=== PATIENT | male | born 1970 | race Two or more races ===

== ENCOUNTER 2018-10-21 02:26 | Emergency (ER) | payer OTHER ==
[~2018-10-21] VITALS: Ht 177.8 cm; Wt 105.5 kg
[2018-10-21 02:35] VITALS: BP 141/65
[2018-10-21] MEDS ORDERED: ASPI-630 PO (03:10)
[2018-10-21] MEDS ORDERED: metoprolol (03:10)
[2018-10-21] MEDS ORDERED: furosemide (03:11)
[2018-10-21] MEDS ORDERED: ALBU2.5V8 INH (03:15)
[2018-10-21] MEDS ORDERED: METH4TAB2 PO (03:15)
[2018-10-21] MEDS ORDERED: predniSONE 20 MG TABLET PO ONE (03:15)
[2018-10-21] MEDS ORDERED: AZIT250T6 PO (03:15)
--- NOTE | 2018-10-21 03:15 | PHYS DOC ---
Adult General Chief Complaint Chief Complaint: COUGH HPI HPI Patient is a 48 year old male who presents with complaint of cough and chest congestion. States symptoms started one week ago with sinus pressure and postnasal drip. States his symptoms have progressively worsened since onset. Has had greenish sputum with coughing. Notes that he has had worsening difficulty breathing with exertion. Denies any extremity swelling or fever. Has been taking Mucinex and Claritin with no significant improvement in symptoms. States that he has burning in his chest with breathing and coughing. Notes that he has sore throat from his drainage. Review of Systems Review of Systems Constitutional: Denies fever or chills [] Eyes: Denies change in visual acuity, redness, or eye pain [] HENT: Nasal congestion, postnasal drip, sore throat[] Respiratory: Cough[] Cardiovascular: Denies substernal chest pain or edema[] GI: Denies abdominal pain, nausea, vomiting, bloody stools or diarrhea [] : Denies dysuria or hematuria [] Musculoskeletal: Denies back pain or joint pain [] Integument: Denies rash or skin lesions [] Neurologic: Denies headache, focal weakness or sensory changes [] All other systems were reviewed and found to be within normal limits, except as documented in this note. Allergies Allergies Allergies Uncoded Allergies Type Severity Reaction Last Updated Verified antibiotic-starts with S Allergy Unknown 10/21/18 Physical Exam Physical Exam Constitutional: Alert, afebrile, vital signs stable, no acute distress. [] HENT: Normocephalic, atraumatic, bilateral external ears normal, oropharynx erythematous, posterior pharyngeal cobblestoning consistent with postnasal drip present, thick rhinorrhea. [] Eyes: PERRLA, EOMI, conjunctiva normal, no discharge. [] Neck: Normal range of motion, no tenderness, supple, no stridor. [] Cardiovascular:Heart rate regular rhythm, no murmur [] Lungs & Thorax: Occasional rhonchi, no wheezes or rales, mildly restricted air movement bilaterally[] Abdomen: Bowel sounds normal, soft, no tenderness, no masses, no pulsatile masses. [] Skin: Warm, dry, no erythema, no rash. [] Back: No tenderness, no CVA tenderness. [] Extremities: No tenderness, no cyanosis, no clubbing, ROM intact, no edema. [] Neurologic: Alert and oriented X 3, normal motor function, normal sensory function, no focal deficits noted. [] Current Patient Data Vital Signs Temperature 98.6, heart rate 70, blood pressure 141/65, pulse oximetry 96% on room air Lab Results Not performed EKG EKG Not performed[] Radiology/Procedures Radiology/Procedures Not performed[] Course & Med Decision Making Course & Med Decision Making Pertinent Labs and Imaging studies reviewed. (See chart for details) Patient's symptoms appear consistent with bronchitis. Given prednisone in the emergency department. Prescribed azithromycin, Medrol, and albuterol for outpatient treatment. Advised follow-up in one week with primary doctor for reevaluation and return to the emergency department for any worsening symptoms. Patient was understanding and in agreement with treatment plan.[] Dragon Disclaimer Dragon Disclaimer This electronic medical record was generated, in whole or in part, using a voice recognition dictation system. Departure Departure: Impression: Primary Impression: Bronchitis Disposition: HOME, SELF-CARE Condition: STABLE Referrals: PCP,SÁNCHEZ (PCP) Patient Instructions: Acute Bronchitis Additional Instructions: Follow-up with your primary doctor in 1 week if symptoms are not improving. Return to the emergency department for any worsening symptoms. Scripts Albuterol Sulfate (PROAIR HFA INHALER) 8.5 Gm Hfa.aer.ad 2 PUFF INH Q4-6HRS PRN for SHORTNESS OF BREATH, #1 INHALER 0 Refills Prov: MARYLOU MICHELLE MD 10/21/18 Methylprednisolone (MEDROL) 4 Mg Tab.ds.pk 1 PKG PO UD, #1 PKG Prov: MARYLOU MICHELLE MD 10/21/18 Azithromycin (AZITHROMYCIN TABLET) 250 Mg Tablet 1 PKG PO UD, #6 TAB Prov: MARYLOU MICHELLE MD 10/21/18 MARYLOU MICHELLE MD October 21, 2018 03:15
[2018-10-21] MEDS ORDERED: ALBUTEROL SULFATE 8GM INHALER. ONE (03:21)
[2018-10-21] MEDS ORDERED: ALBUTEROL SULFATE 8GM INHALER. INH ONE (03:30)
== END 2018-10-21 03:24 | disposition home or self-care (01) ==
LOC: ER 02:38
DX: J40 Bronchitis, not specified as acute or chronic (principal); Z88.1 Allergy status to other antibiotic agents
CPT/HCPCS: 94640; 99283; J7512; 94664

== ENCOUNTER → 2019-02-03 | Outpatient (CLI) | payer OTHER ==
[~2019-02-03] MED LIST: ALBU2.5V8 INH; ASPI-630 PO; AZIT250T6 PO; METH4TAB2 PO; furosemide; metoprolol
--- NOTE | 2019-02-03 16:48 | RAD ---
Chest radiograph 02/03/2019 12:00 PM INDICATION: Edema of the lower legs COMPARISON: None available TECHNIQUE: Frontal and lateral views of the chest are provided. FINDINGS: The cardiomediastinal silhouette is within normal limits. There are no pleural effusions. There is no pulmonary vascular congestion. There is no pneumothorax. The lungs are clear. No significant osseous abnormality is identified. IMPRESSION: No acute cardiopulmonary process. Electronically signed by: Jeannette Fitch MD (02/03/2019 4:45 PM) [id number]
== END | disposition home or self-care (01) ==
LOC: PMG 11:54
PROVIDERS: ATTEND Registered Nurse
DX: I49.8 Other specified cardiac arrhythmias (principal); R60.0 Localized edema
CPT/HCPCS: 71046

== ENCOUNTER 2019-02-20 20:59 | Emergency (ER) | payer OTHER ==
[~2019-02-20] VITALS: Ht 177.8 cm; Wt 105.5 kg
[2019-02-20] MEDS ORDERED: ASPIRIN 81 MG TAB.CHEW PO ONE (21:30)
[2019-02-20] MEDS ORDERED: IV RINGERS SOLUTION,LACTATED 1,000 ML IV SCH (21:30)
[2019-02-20] MEDS ORDERED: ADENOSINE 6 MG/2 ML VIAL IV ONE ×2 (21:30)
[2019-02-20 21:58] LABS: BASO # 0.2 x10^3/uL (0.0-0.2); BASO % 2 % (0-3); EOS # 0.3 x10^3/uL (0.0-0.7); EOS % 3 % (0-3); HEMATOCRIT 46.4 % (39.0-53.0); LYMPH # 3.4 x10^3/uL (1.0-4.8); LYMPH % 34 % (24-48); MEAN CORPUSCULAR HEMOGLOBIN 32 pg (25-35); MEAN CORPUSCULAR HGB CONC 35 g/dL (31-37); MEAN CORPUSCULAR VOLUME 92 fL (79-100); MONO # 0.8 x10^3/uL (0.0-1.1); MONO % 8 % (0-9); NEUT # 5.5 x10^3uL (1.8-7.7); NEUT % 54 % (31-73); PLATELET COUNT 295 x10^3/uL (140-400); RED BLOOD COUNT 5.07 x10^6/uL (4.30-5.70); RED CELL DISTRIBUTION WIDTH 13.8 % (11.5-14.5); WHITE BLOOD COUNT 10.1 x10^3/uL (4.0-11.0)
[2019-02-20 22:15] LABS: ALBUMIN 4.1 g/dL (3.4-5.0); CALCIUM 9.6 mg/dL (8.5-10.1); CREATININE 1.5 mg/dL (0.7-1.3); DIRECT BILIRUBIN 0.1 mg/dL (0.0-0.2); GFR 49.9; MAGNESIUM 2.3 mg/dL (1.8-2.4); POTASSIUM 4.1 mmol/L (3.5-5.1); TOTAL BILIRUBIN 0.3 mg/dL (0.2-1.0); TOTAL PROTEIN 7.9 g/dL (6.4-8.2)
[2019-02-20 22:27] LABS: BARBITURATES NEG (NEG); BENZODIAZEPINES NEG (NEG); CANNABINOIDS NEG (NEG); COCAINE NEG (NEG); METHADONE NEG (NEG); OPIATES NEG (NEG); PHENCYCLIDINE NEG (NEG)
[2019-02-20 22:28] LABS: AMPHETAMINE/METHAMPHETAMINE NEG (NEG)
[2019-02-20 22:33] LABS: BACTERIA,URINE 0 /HPF (0-FEW); BILIRUBIN,URINE NEG (NEG); CLARITY,URINE CLEAR; COLOR,URINE STRAW; GLUCOSE,URINE NEG (NEG); NITRITE,URINE NEG (NEG); RBC,URINE OCC /HPF (0-2); SQUAMOUS EPITHELIAL CELL,UR OCC /LPF; UROBILINOGEN,URINE 2 mg/dL (0.2 mg/dL); WBC,URINE OCC /HPF (0-4)
[2019-02-20 23:53] VITALS: BP 137/85
[2019-02-21] MEDS ORDERED: METOPROLOL TART IMMED RELEASE 25 MG TABLET PO ONE
[2019-02-21] MEDS ORDERED: METO50TA6 PO (00:18)
--- NOTE | 2019-02-21 07:05 | ED.ADGEN ---
Past History Past Medical History: Hypertension, Sinusitis, Other Additional Past Medical Histor: SVT Past Surgical History: No Surgical History Alcohol Use: None Drug Use: None Adult General Chief Complaint Chief Complaint ".. I got a really fast heart rate.. I ve had this before.. but did not seem this bad.. I can usually make it stop by holding my breath .. or lifting something.. .:". 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 She gives a history of paroxysmal supraventricular tachycardia that has been episodic over the last 2 years. Patient has been compliant with taking his metoprolol 25 mg a day. History of specific ill contacts or travel. Patient denies any history immunosuppression. Patient has never been admitted for his supraventricular tachycardia.. Patient denies any increased intake of caffeine or use illicit drugs. Review of Systems Review of Systems Constitutional: Denies fever or chills [] Eyes: Denies change in visual acuity, redness, or eye pain [] HENT: Denies nasal congestion or sore throat [] Respiratory: Complains of shortness of breath [] Cardiovascular: No additional information not addressed in HPI [] GI: Denies abdominal pain, nausea, vomiting, bloody stools or diarrhea [] : Denies dysuria or hematuria [] Musculoskeletal: Denies back pain or joint pain [] Integument: Denies rash or skin lesions [] Neurologic: Denies headache, focal weakness or sensory changes [] Endocrine: Denies polyuria or polydipsia [] All other systems were reviewed and found to be within normal limits, except as documented in this note. Family History Family History Noncontributory Current Medications Current Medications Current Medications Medications (Trade) Dose Ordered Sig/Shantelle Start Time Stop Time Status Last Admin Dose Admin Adenosine (Adenocard) 12 mg 1X ONCE 02/20/19 21:30 02/20/19 21:31 DC Aspirin (Children'S Aspirin) 324 mg 1X ONCE 02/20/19 21:30 02/20/19 21:31 DC 02/20/19 21:50 324 MG Lactated Ringer's 1,000 ml @ 1,000 mls/hr Q1H 02/20/19 21:30 02/20/19 22:29 DC 02/20/19 21:28 1,000 MLS/HR Metoprolol Tartrate (Lopressor) 50 mg 1X ONCE 02/21/19 00:00 02/21/19 00:01 DC 02/20/19 23:53 50 MG Allergies Allergies Allergies Coded Allergies Type Severity Reaction Last Updated Verified Sulfa (Sulfonamide Antibiotics) Allergy Unknown 02/20/19 Yes Physical Exam Physical Exam Constitutional: Moderate acute distress, non-toxic appearance. [] HENT: Normocephalic, atraumatic, bilateral external ears normal, oropharynx moist, no oral exudates, nose normal. [] Eyes: PERRLA, EOMI, conjunctiva normal, no discharge. [] Neck: Normal range of motion, no tenderness, supple, no stridor. [] Cardiovascular: Tachycardia Heart rate regular rhythm, no murmur [] Lungs & Thorax: Bilateral breath sounds equal at apex on auscultation [] Abdomen: Bowel sounds normal, soft, no tenderness, no masses, no pulsatile masses. [] Skin: Warm, dry, no erythema, no rash. [Tattoos Back: No tenderness, no CVA tenderness. [] Extremities: No tenderness, no cyanosis, no clubbing, ROM intact, no edema. [] Neurologic: Alert and oriented X 3, normal motor function, normal sensory function, no focal deficits noted. [] Psychologic: Affect anxious, judgement normal, mood normal. [] Current Patient Data Vital Signs Vital Signs Date Time Temp Pulse Resp B/P (MAP) Pulse Ox O2 Delivery O2 Flow Rate FiO2 02/20/19 23:53 79 137/85 02/20/19 23:03 20 95 Room Air 02/20/19 21:10 97.9 Lab Results Laboratory Tests Test 02/20/19 21:10 02/20/19 21:54 White Blood Count 10.1 x10^3/uL (4.0-11.0) Red Blood Count 5.07 x10^6/uL (4.30-5.70) Hemoglobin 16.0 g/dL (13.0-17.5) Hematocrit 46.4 % (39.0-53.0) Mean Corpuscular Volume 92 fL (79-100) Mean Corpuscular Hemoglobin 32 pg (25-35) Mean Corpuscular Hemoglobin Concent 35 g/dL (31-37) Red Cell Distribution Width 13.8 % (11.5-14.5) Platelet Count 295 x10^3/uL (140-400) Neutrophils (%) (Auto) 54 % (31-73) Lymphocytes (%) (Auto) 34 % (24-48) Monocytes (%) (Auto) 8 % (0-9) Eosinophils (%) (Auto) 3 % (0-3) Basophils (%) (Auto) 2 % (0-3) Neutrophils # (Auto) 5.5 x10^3uL (1.8-7.7) Lymphocytes # (Auto) 3.4 x10^3/uL (1.0-4.8) Monocytes # (Auto) 0.8 x10^3/uL (0.0-1.1) Eosinophils # (Auto) 0.3 x10^3/uL (0.0-0.7) Basophils # (Auto) 0.2 x10^3/uL (0.0-0.2) Prothrombin Time 9.6 SEC (9.4-11.4) Prothrombin Time INR 0.9 (0.9-1.1) Activated Partial Thromboplast Time 23 SEC (23-33) D-Dimer (Kimberly) < 0.19 mg/L (0.00-0.50) Sodium Level 138 mmol/L (136-145) Potassium Level 4.1 mmol/L (3.5-5.1) Chloride Level 102 mmol/L (98-107) Carbon Dioxide Level 27 mmol/L (21-32) Anion Gap 9 (6-14) Blood Urea Nitrogen 19 mg/dL (8-26) Creatinine 1.5 mg/dL (0.7-1.3) H Estimated GFR (Cockcroft-Gault) 49.9 Glucose Level 121 mg/dL (70-99) H Calcium Level 9.6 mg/dL (8.5-10.1) Magnesium Level 2.3 mg/dL (1.8-2.4) Total Bilirubin 0.3 mg/dL (0.2-1.0) Direct Bilirubin 0.1 mg/dL (0.0-0.2) Aspartate Amino Transferase (AST) 23 U/L (15-37) Alanine Aminotransferase (ALT) 21 U/L (16-63) Alkaline Phosphatase 65 U/L (46-116) Creatine Kinase 261 U/L (39-308) Troponin I Quantitative < 0.017 ng/mL (0-0.055) SK-Xnb-L-Type Natriuretic Peptide 23 pg/mL (0-124) Total Protein 7.9 g/dL (6.4-8.2) Albumin 4.1 g/dL (3.4-5.0) Lipase 89 U/L (73-393) Urine Collection Type Unknown Urine Color Straw Urine Clarity Clear Urine pH 7.0 Urine Specific Ada 1.010 Urine Protein Neg (NEG-TRACE) Urine Glucose (UA) Neg mg/dL (NEG) Urine Ketones (Stick) Neg mg/dL (NEG) Urine Blood Neg (NEG) Urine Nitrite Neg (NEG) Urine Bilirubin Neg (NEG) Urine Urobilinogen Dipstick 2 mg/dL (0.2 mg/dL) Urine Leukocyte Esterase Neg (NEG) Urine RBC Occ /HPF (0-2) Urine WBC Occ /HPF (0-4) Urine Squamous Epithelial Cells Occ /LPF Urine Bacteria 0 /HPF (0-FEW) Urine Opiates Screen Neg (NEG) Urine Methadone Screen Neg (NEG) Urine Barbiturates Neg (NEG) Urine Phencyclidine Screen Neg (NEG) Urine Amphetamine/Methamphetamine Neg (NEG) Urine Benzodiazepines Screen Neg (NEG) Urine Cocaine Screen Neg (NEG) Urine Cannabinoids Screen Neg (NEG) Urine Ethyl Alcohol Neg (NEG) EKG EKG My interpretation of EKG shows a ventricular tachycardia at 166 bpm. And a strain pattern. 2110 My interpretation of repeat EKG [id number]. Does a sinus rhythm at 87 bpm and mild leftward axis. No findings acute STEMI of contralateral changes.- EKG post- adenosine Radiology/Procedures Radiology/Procedures Interpretation chest x-ray shows no acute cardiopulmonary findings.[][address] [address] IMAGING REPORT Signed PATIENT: JULIANNE HANSEN ACCOUNT: [id number] : 1970 [place] [facility] [place]GE[place] 49 SEX: M EXAM STATUS: REG CLI ORD. PHYSICIAN: IVET MONTANO ASSISTED LIVING ASSOCIATE-C REASON: EDEMA OF LOWER LEGS, HEART FLUTTER PROCEDURE: CHEST PA & LATERAL Chest radiograph 02/03/2019 12:00 PM INDICATION: Edema of the lower legs COMPARISON: None available TECHNIQUE: Frontal and lateral views of the chest are provided. FINDINGS: The cardiomediastinal silhouette is within normal limits. There are no pleural effusions. There is no pulmonary vascular congestion. There is no pneumothorax. The lungs are clear. No significant osseous abnormality is identified. IMPRESSION: No acute cardiopulmonary process. Electronically signed by: Javier Novak MD (02/03/2019 4:45 PM) [id number] DICTATED AND SIGNED BY: JAVIER NOVAK MD DATE: 02/03/19 [id number] CC: PCP,NO; IVET MONTANO ASSISTED LIVING ASSOCIATE-C ~ Course & Med Decision Making Course & Med Decision Making Pertinent Labs and Imaging studies reviewed. (See chart for details)- Procedure note- cardioversion with adenosine- patient received 6 mg of adenosine with conversion to a sinus rhythm. Patient to take a daily aspirin. Patient increase his metoprolol to 50 mg at night. Patient follow-up with cardiology. Patient return if any concerns. Patient avoid caffeine products [] Final Impression Final Impression 1. Paroxysmal supraventricular tachycardia[] 2. Hypertension 3. Elevated glucose 121 4. Elevated creatinine 1.5 Dragon Disclaimer Dragon Disclaimer This electronic medical record was generated, in whole or in part, using a voice recognition dictation system. Dragon Disclaimer This chart was dictated in whole or in part using Voice Recognition software in a busy, high-work load, and often noisy Emergency Department environment. It may contain unintended and wholly unrecognized errors or omissions. ADELAIDA العلي MD Feb 21, 2019 07:05
--- NOTE | 2019-02-21 07:31 | EKG ---
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
--- NOTE | 2019-02-21 07:33 | EKG ---
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
--- NOTE | 2019-02-21 08:26 | RAD ---
PA and lateral chest radiographs 02/20/2019 CLINICAL HISTORY: Chest pain. PA and lateral digital radiographs of the chest were obtained. Comparison study is dated 02/03/2019. The cardiac and mediastinal silhouettes are within normal limits in size and configuration. No acute pulmonary infiltrate is seen. No pleural effusion or pneumothorax is noted. The osseous structures are unchanged. IMPRESSION: No acute abnormality is seen. Electronically signed by: Phillip Turner MD (02/21/2019 8:23 AM) [place] [id number]
[2019-02-21 13:30] LABS: THYROID STIM HORMONE (TSH) 8.563 uIU/mL (0.358-3.740)
== END 2019-02-21 00:40 | disposition home or self-care (01) ==
LOC: ER 20:59
DX: I47.1 Supraventricular tachycardia (principal); I10 Essential (primary) hypertension; R73.9 Hyperglycemia, unspecified; R94.4 Abnormal results of kidney function studies; Z88.2 Allergy status to sulfonamides
CPT/HCPCS: 36415; 71046; 80048; 80061; 80076; 80307; 81001; 82550; 83690; 83735; 83880; 84443; 84484; 85025; 85379; 85610; 85730; 92960; 93005; 99285; J0153; J7120; 96374